=== PATIENT | female | born 1965 | race African-American/Black ===

== ENCOUNTER → 2022-12-23 | Day surgery (SDC) | payer OTHER ==
[~2022-12-23] MED LIST: INSULIN REGULAR, HUMAN 100 UNIT/1 ML ONE; LACTATED RINGER'S 1,000 ML ONE; LIDOCAINE HCL 2% LOCAL INJ 5 ML SDV VIAL INJ ONE; ONE DAILY FOR1 EAC3; PROPOFOL IV EMULSION 50 ML IV ONE; PROVENTIL HFA6.7 GM INH; SYMBICORT 16010.2 GM INH; TOUJEO SOL300 UNIT/1 SQ; VITAMIN D31 ML
[2022-12-23 13:59] VITALS: TEMP 97.2
[2022-12-23 14:15] VITALS: BP 134/70; PULSE 102; RESP 17; O2SAT 97
== END | disposition home or self-care (01) ==
LOC: EDBD 11:00 → OR 12:15
PROVIDERS: ATTEND Internal Medicine Gastroenterology
DX: Z12.11 Encounter for screening for malignant neoplasm of colon (principal); D12.2 Benign neoplasm of ascending colon; K29.70 Gastritis, unspecified, without bleeding; K44.9 Diaphragmatic hernia without obstruction or gangrene; K58.9 Irritable bowel syndrome, unspecified; K21.9 Gastro-esophageal reflux disease without esophagitis; K59.00 Constipation, unspecified; K62.5 Hemorrhage of anus and rectum; K64.8 Other hemorrhoids; E11.9 Type 2 diabetes mellitus without complications; J45.909 Unspecified asthma, uncomplicated; G57.83 Other specified mononeuropathies of bilateral lower limbs; Z88.2 Allergy status to sulfonamides; Z79.4 Long term (current) use of insulin; Z79.899 Other long term (current) drug therapy; Z68.35 Body mass index [BMI] 35.0-35.9, adult; Z87.440 Personal history of urinary (tract) infections
CPT/HCPCS: 36415; 43239; 45385; 82948; J2001; J2704; J7121